=== PATIENT | female | born 1985 | race Caucasian/White ===

== ENCOUNTER 2019-04-27 23:38 | Emergency (ER) | payer OTHER ==
[~2019-04-27] VITALS: Ht 170.2 cm; Wt 63.5 kg
[~2019-04-27 23:38] MED LIST: IBUPROFEN 600600 M1 PO; NO HOME MEDS; NORCO 5-325 TA1 EACH PO
[2019-04-28] MEDS ORDERED: TRAMADOL 50 MG50 MG PO (02:12)
[2019-04-28] MEDS ORDERED: NAPROSYN500 MG PO (02:12)
[2019-04-28 02:20] VITALS: BP 112/71
== END 2019-04-28 02:20 | disposition home or self-care (01) ==
LOC: ER 23:38
DX: S50.02XA Contusion of left elbow, initial encounter (principal); J45.909 Unspecified asthma, uncomplicated; L40.9 Psoriasis, unspecified; F17.210 Nicotine dependence, cigarettes, uncomplicated; W18.39XA Other fall on same level, initial encounter; Y93.89 Activity, other specified; Y92.89 Other specified places as the place of occurrence of the external cause; Y99.8 Other external cause status

== ENCOUNTER 2021-09-17 17:07 | Emergency (ER) | payer OTHER ==
[~2021-09-17] VITALS: Ht 165.1 cm; Wt 83.9 kg
[~2021-09-17 17:07] MED LIST changes: +NAPROSYN500 MG PO; +TRAMADOL 50 MG50 MG PO
[2021-09-17 17:58] LABS: BASOPHILS 0.9 % (0.0-2.0); EOSINOPHILS 1.8 % (0.0-3.0); HEMATOCRIT 41.3 % (37.0-47.0); HEMOGLOBIN 13.6 gm/dL (12.0-15.0); LYMPHOCYTES 7.5 % (24.0-44.0); MCV 90.9 fL (80.0-100.0); MONOCYTES 8.3 % (1.0-8.0); PLATELET COUNT 274 thou/uL (150-400); POLYS 81.5 % (36.0-66.0); RBC 4.54 mil/uL (4.20-5.00); RDW 12.2 % (10.5-14.5); WBC 4.9 thou/uL (4.0-11.0)
[2021-09-17 18:04] LABS: CALCIUM 8.8 mg/dL (8.5-10.1); CREATININE 0.7 mg/dL (0.6-1.0); POTASSIUM 3.9 mmol/L (3.5-5.1)
[2021-09-17 18:15] LABS: ALBUMIN 3.7 g/dL (3.4-5.0); TOTAL BILIRUBIN 0.1 mg/dL (0.2-1.0); TOTAL PROTEIN 7.3 g/dL (6.4-8.2)
[2021-09-17 19:54] LABS: INR 0.99; PROTIME 10.8 Seconds (10.5-12.1)
[2021-09-18 06:15] VITALS: BP 139/79
--- NOTE | 2021-09-18 08:00 | EKG ---
[address] [employer] [address] ELECTROCARDIOGRAM REPORT Name: ROSE HONEYCUTT Room #: DEP [facility] [id number] Admission: 09/17/21 Attend Phys: Discharge: 09/17/21 Date of : 87 Report #: [id number] [facility] ED Test Date: 2021-09-17 Test Time: 17:18:01 Pat Name: ROSE HONEYCUTT Department: Room: Gender: F Mechanical Systems Designer: janene : 1985 Requested By: Marguerite Vazquez Order Number: [id number] MD: Juan Pino Measurements Intervals [place] Rate: 107 P: 20 AK: 127 QRS: 15 QRSD: 88 T: 37 QT: 337 QTc: 450 Interpretive Statements Sinus tachycardia Compared to ECG 09/29/2011 16:41:12 Sinus rhythm no longer present Sinus arrhythmia no longer present Electronically Signed On 09-18-2021 7:59:56 [employer] APPRAISER by Juan Pino [email or web address] <ELECTRONICALLY SIGNED> By: Juan Pino MD, [facility] 09/18/21 0759 1718 1718 Juan Pino MD, FACC /EPI
== END 2021-09-17 23:26 | disposition home or self-care (01) ==
LOC: ER 17:07
PROVIDERS: Nurse Practitioner
DX: R51.9 Headache, unspecified (principal); Z20.822 Contact with and (suspected) exposure to COVID-19; R07.89 Other chest pain; J45.909 Unspecified asthma, uncomplicated; F17.210 Nicotine dependence, cigarettes, uncomplicated